=== PATIENT | male | born 1965 | race Caucasian/White ===

== ENCOUNTER → 2017-04-24 | Outpatient (CLI) | payer BC ==
[2017-04-24 13:21] LABS: BLOOD UREA NITROGEN 16 mg/dl (7-18); CALCIUM 9.1 mg/dl (8.5-10.1); CARBON DIOXIDE 30 mmol/L (21-32); CHLORIDE 104 mmol/L (98-107); CREATININE 0.93 mg/dl (0.60-1.40); GLUCOSE 93 mg/dl (70-99); POTASSIUM 4.1 mmol/L (3.5-5.1); SODIUM 139 mmol/L (136-145)
[2017-04-24 13:24] LABS: CHOLESTEROL 202 mg/dl (0-200); CHOLESTEROL/HDL RATIO 5.5; HDL CHOLESTEROL 37 mg/dl; LDL CHOLESTEROL CALCULATED 135 mg/dl; TRIGLYCERIDES 149 mg/dl (0-150); VERY LOW DENSITY LIPOPROT CALC 30 mg/dl
[2017-04-24 13:26] LABS: BASO % 0.3 %; BASO ABS # 0.02 K/uL (0-0.2); COMPLETE YES; EOS % 2.8 %; HEMATOCRIT 48.1 % (42-52); IG% 0.1 %; LYMPH % 33.7 %; LYMPH ABS # 2.28 K/uL (1.2-3.4); MEAN CELL VOLUME 88.1 fL (80-100); MEAN CORPUSCULAR HEMOGLOBIN 29.7 pg (25-34); MEAN CORPUSCULAR HGB CONC 33.7 g/dl (32-36); MEAN PLATELET VOLUME 10.8 fL (7.4-10.4); MONO % 7.7 %; NEUT % 55.4 %; PLATELET COUNT 190 K/uL (130-400); RED BLOOD COUNT 5.46 M/uL (4.7-6.1); WHITE BLOOD COUNT 6.76 K/uL (4.8-10.8)
== END | disposition home or self-care (01) ==
LOC: C.LABPVFM 09:11
PROVIDERS: ATTEND Family Medicine
DX: K14.6 Glossodynia (principal); Z98.84 Bariatric surgery status

== ENCOUNTER 2025-05-29 12:56 | Inpatient (IN) ==
--- NOTE | 2025-05-29 13:11 | Emergency Department Note ---
Impression & Plan Acute CVA (cerebrovascular accident), Acute loss of vision ED Provider Note HISTORY OF PRESENT ILLNESS: Patient is a 60-year-old male presenting with vision loss. 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 He states that he sees "the tiniest pinprick of light" in the right eye. However, he does not see anything else. He states the entire rest of his visual field is black. He states that he went to [place] [facility] eye doctor today after calling their clinic to be seen and they referred him to the emergency department because they said he "had a stroke in my eye." He did have his pupils dilated and a full retinal exam performed for the patient. Patient denies any numbness, tingling or weakness in his extremities. Denies any chest pain or shortness of breath. He reports he takes no medication, including any anticoagulants or antiplatelet therapies. ROS: as above PHYSICAL EXAM: Constitutional: Patient appears in no acute distress. Morbidly obese HENT: Head: Normocephalic and atraumatic. Eyes: EOMI. pupils are dilated bilaterally. Mouth/Throat: Mucous membranes moist. Neck: Trachea midline. Neck supple. Cardiovascular: RRR, No murmurs, rubs or gallops. Intact distal pulses. Pulmonary/Chest: No respiratory distress. Breath sounds clear and equal bilaterally. No wheezes or rales. Abdominal: Abdomen soft, no tenderness, rebound or guarding. Musculoskeletal: No edema, tenderness or deformity noted. Skin: Warm and dry. No rash, erythema, pallor or cyanosis Psychiatric: Appropriate mood and affect for situation. Neurological: Alert and keenly responsive. Facies symmetric. Able to raise eyebrows, close eyes, smile, puff mouth, stick out tongue, move tongue left and right and raise palate symmetrically. Able to shrug shoulders. PERRLA. SILT to forehead below eye and at jawline. Can hear soft noise bilaterally. Good finger to nose. Strength 5/5 in bilateral upper and lower extremities. SILT throughout bilateral upper and lower extremities. MDM: - Vitals signs showed hypertension and tachycardia. - Patient's last known well was at 9:30 AM. He presents to the emergency department at 1300. After my evaluation of the patient and his symptoms, I did request that he be stroke alerted given that he is within the TNK administration window. He has no other neurological symptoms other than complete vision loss in the right eye. He is noted to be hypertensive, so 10 mg of IV labetalol was ordered. On reassessment, his repeat blood pressure was 170s over 110. - Did discuss case with [facility] teleneurologist on- call, Dr. Aguilar, at 13:18. She reports that she will see the patient. - CT head without contrast reviewed by myself is negative for acute intracranial hemorrhage, per my interpretation. - I was called to the room at 13:40 to discuss TNK with the patient, given that he is within the window. Patient was verbally consented for TNK by myself and with teleneurologist on the stroke cart. Patient's blood pressure is 170s over 110. As such, an additional 10 mg of IV labetalol was ordered. Repeat blood pressure now 150/88. TNK (25 mg) was administered at 13:45. - History obtained via patient. History as above. - Chronic conditions affecting care: none - Differential diagnoses include, but are not limited to: CVA; intracranial hemorrhage; carotid dissection; aortic dissection; ACS - Order placed for continuous cardiac monitoring. At this time, monitor showed rate of 97 bpm with normal sinus rhythm, per my interpretation. - External medical records reviewed. Documentation from [place] [facility] office visit note that the patient brought with him was reviewed by myself. Physician recommended the patient obtain an ESR, CRP, carotid ultrasounds and echocardiogram for his ocular stroke workup. - EKG image interpreted by myself showed normal sinus rhythm. Rate 86 bpm. QT 354. No acute ischemic changes. - Laboratory workup interpreted by myself showed normal WBC; normal PT/INR; stable electrolytes; normal troponin; normal AST/ALT; elevated total bilirubin (1.1) - CT head without contrast negative for acute pathology. - CTA head/neck interpreted by radiology was grossly unremarkable. - Teleneurologist, Dr. Aguilar, reports that she will write a note in the patient's chart. Did recommend that homocystine levels to be drawn as well as a TSH to further workup the cause of the patient's ocular stroke. - On reassessment at 1415, the patient reports that his vision in the right eye is subtly improving. What used to be just pinprick of light in the right visual field has now become a [place] through which he can see. - Discussion was had with hospice case manager about patient's case and need for admission - Hospitalist consulted for admission - [facility]. I have personally spent 49 minutes of critical care time in the direct management of this patient. This includes bedside care, interpretation of diagnostic studies, and testing, discussion with consultants, patient, and family members, and other required patient management activities. This 49 minutes is in excess of all separately billable procedures. ASSESSMENT AND PLAN: Diagnosis: Acute CVA; acute loss of vision Acute loss of vision plan: Admit Past Med/Surg History Problem List (Updated 05/29/25 @ 13:52 by Kayla Hodges MD) Acute loss of vision (Acute) Acute CVA (cerebrovascular accident) (Acute) Lab test positive for detection of COVID-19 virus Dysuria Encounter for pre-operative examination No known health problems (Acute) Alcohol intoxication (Acute) Alcohol intoxication (Acute) Alcohol overdose (Acute) Alcohol overdose (Acute) Hernia, incisional (Acute 04/05/14) Medical History (Updated 05/29/25 @ 13:52 by Kayla Hodges MD) Morbid obesity with BMI of 45.0-49.9, adult Gout Sleep apnea no device, improved after bariatric sx Surgical History History of incisional hernia repair per pt came back--"volleyball sized hernia" History of esophagogastroduodenoscopy (EGD) History of wisdom tooth extraction History of María-en-Y gastric bypass Family History Father Family history of reaction to anesthesia "jeff freaked out after waking after surgery before" Social History Smoking Status: Never smoker Tobacco Type: Smokeless Tobacco (Dip or Chew) Second Hand Exposure: Yes (parents smoked); Do You Dip or Chew Tobacco: No; Hx Alcohol Use: Yes Alcohol type: beer, wine and hard liquor Hx Substance Use: No Preferred Language: Tam[place] Communication Ability: Effective Supervisor [employer] Required: No Beliefs That Will Affect Care: None marital status: Single Current Living Situation: Alone current occupational status: employed current occupation: [employer] Feels Safe at Home: Yes caffeine: Yes (coffee and tea) Dental Care, Regularly: Yes Physical Activity Frequency: 1-2 Times per Week Seatbelt Use: never Sunscreen Use: Yes Assistive Devices: Glasses Allergies Allergies Allergy/AdvReac Type Severity Reaction Status Date / Time No Known Allergies Allergy Verified 05/04/23 11:43 Home Meds Home Medications Medication Instructions Recorded Confirmed acetaminophen 325 mg tablet 650 mg PO QAM 03/29/19 05/04/23 cholecalciferol (vitamin D3) 50 2,000 unit PO QAM 03/29/19 05/04/23 mcg (2,000 unit) tablet (Vitamin D3) ibuprofen 200 mg tablet 400 mg PO QAM 03/29/19 05/04/23 Previous Rx's Medication Instructions Recorded escitalopram oxalate 10 mg tablet 10 mg PO DAILY #30 tabs 05/04/23 (Lexapro) lorazepam 0.5 mg tablet 0.5 mg PO BID PRN anxiety #60 tabs 05/04/23 Results & Data (ED) Vital Signs Vital Signs - 24 hr 05/29/25 12:58 05/29/25 13:11 05/29/25 13:11 Temperature 36.6 C Temperature Source Temporal Artery Scan Pulse Rate 98 H Pulse Rate [Apical] Pulse Rate from SpO2 Sensor Respiratory Rate 18 Respiratory Effort / Characteristics Non-Labored Spontaneous Respiratory Depth Normal Respiratory Pattern Blood Pressure 195/132 H 177/110 H Blood Pressure [Left Arm] 177/110 H Blood Pressure Mean 153 129 Blood Pressure Mean [Left Arm] 132 Blood Pressure Position [Left Arm] Pulse Oximetry 98 Oxygen Delivery Method Room Air Sepsis Recent Fever Within 48 Hours No Sepsis New/Unexplained Change in Mental Status No Sepsis Action Taken by Nursing No Action Required 05/29/25 13:27 05/29/25 13:27 05/29/25 13:27 Temperature Temperature Source Pulse Rate 103 H 102 H Pulse Rate [Apical] Pulse Rate from SpO2 Sensor 101 H Respiratory Rate 25 H Respiratory Effort / Characteristics Respiratory Depth Respiratory Pattern Blood Pressure 190/105 H 190/105 H Blood Pressure [Left Arm] Blood Pressure Mean 138 Blood Pressure Mean [Left Arm] Blood Pressure Position [Left Arm] Pulse Oximetry 96 Oxygen Delivery Method Room Air Sepsis Recent Fever Within 48 Hours Sepsis New/Unexplained Change in Mental Status Sepsis Action Taken by Nursing 05/29/25 13:28 05/29/25 13:30 05/29/25 13:30 Temperature Temperature Source Pulse Rate 111 H 98 H Pulse Rate [Apical] Pulse Rate from SpO2 Sensor 98 H Respiratory Rate 21 Respiratory Effort / Characteristics Respiratory Depth Respiratory Pattern Blood Pressure 172/109 H Blood Pressure [Left Arm] Blood Pressure Mean 142 Blood Pressure Mean [Left Arm] Blood Pressure Position [Left Arm] Pulse Oximetry 95 Oxygen Delivery Method Room Air Sepsis Recent Fever Within 48 Hours Sepsis New/Unexplained Change in Mental Status Sepsis Action Taken by Nursing 05/29/25 13:36 05/29/25 13:38 05/29/25 13:38 Temperature Temperature Source Pulse Rate 92 H Pulse Rate [Apical] Pulse Rate from SpO2 Sensor Respiratory Rate 24 Respiratory Effort / Characteristics Respiratory Depth Respiratory Pattern Blood Pressure 181/113 H Blood Pressure [Left Arm] 181/113 H Blood Pressure Mean 161 Blood Pressure Mean [Left Arm] 135 Blood Pressure Position [Left Arm] Lying Pulse Oximetry Oxygen Delivery Method Sepsis Recent Fever Within 48 Hours Sepsis New/Unexplained Change in Mental Status Sepsis Action Taken by Nursing 05/29/25 13:39 05/29/25 13:40 05/29/25 13:42 Temperature Temperature Source Pulse Rate 94 H 94 H Pulse Rate [Apical] Pulse Rate from SpO2 Sensor 93 H 93 H Respiratory Rate 24 25 H Respiratory Effort / Characteristics Respiratory Depth Respiratory Pattern Blood Pressure 172/110 H Blood Pressure [Left Arm] Blood Pressure Mean 126 Blood Pressure Mean [Left Arm] Blood Pressure Position [Left Arm] Pulse Oximetry 98 96 Oxygen Delivery Method Room Air Room Air Sepsis Recent Fever Within 48 Hours Sepsis New/Unexplained Change in Mental Status Sepsis Action Taken by Nursing 05/29/25 13:43 05/29/25 13:43 05/29/25 13:45 Temperature Temperature Source Pulse Rate 86 Pulse Rate [Apical] 85 Pulse Rate from SpO2 Sensor 86 Respiratory Rate 20 25 H Respiratory Effort / Characteristics Non-Labored Spontaneous Respiratory Depth Normal Respiratory Pattern Regular Blood Pressure 154/88 H Blood Pressure [Left Arm] 154/88 H Blood Pressure Mean 109 Blood Pressure Mean [Left Arm] 110 Blood Pressure Position [Left Arm] Pulse Oximetry 96 96 Oxygen Delivery Method Room Air Room Air Sepsis Recent Fever Within 48 Hours Sepsis New/Unexplained Change in Mental Status Sepsis Action Taken by Nursing 05/29/25 13:45 05/29/25 13:48 05/29/25 13:50 Temperature Temperature Source Pulse Rate 86 Pulse Rate [Apical] Pulse Rate from SpO2 Sensor 87 Respiratory Rate 19 Respiratory Effort / Characteristics Respiratory Depth Respiratory Pattern Blood Pressure 151/96 H 149/87 H Blood Pressure [Left Arm] Blood Pressure Mean 117 110 Blood Pressure Mean [Left Arm] Blood Pressure Position [Left Arm] Pulse Oximetry 96 Oxygen Delivery Method Room Air Sepsis Recent Fever Within 48 Hours Sepsis New/Unexplained Change in Mental Status Sepsis Action Taken by Nursing 05/29/25 13:51 05/29/25 13:54 05/29/25 13:55 Temperature Temperature Source Pulse Rate 86 84 Pulse Rate [Apical] Pulse Rate from SpO2 Sensor 86 83 Respiratory Rate 21 20 Respiratory Effort / Characteristics Respiratory Depth Respiratory Pattern Blood Pressure 153/96 H Blood Pressure [Left Arm] Blood Pressure Mean 111 Blood Pressure Mean [Left Arm] Blood Pressure Position [Left Arm] Pulse Oximetry 96 96 Oxygen Delivery Method Room Air Room Air Sepsis Recent Fever Within 48 Hours Sepsis New/Unexplained Change in Mental Status Sepsis Action Taken by Nursing 05/29/25 13:55 05/29/25 13:57 05/29/25 14:00 Temperature Temperature Source Pulse Rate 88 90 Pulse Rate [Apical] Pulse Rate from SpO2 Sensor 88 89 Respiratory Rate 19 23 Respiratory Effort / Characteristics Respiratory Depth Respiratory Pattern Blood Pressure 153/96 H Blood Pressure [Left Arm] Blood Pressure Mean 111 Blood Pressure Mean [Left Arm] Blood Pressure Position [Left Arm] Pulse Oximetry 97 96 Oxygen Delivery Method Room Air Room Air Sepsis Recent Fever Within 48 Hours Sepsis New/Unexplained Change in Mental Status Sepsis Action Taken by Nursing 05/29/25 14:00 05/29/25 14:06 Temperature Temperature Source Pulse Rate 88 Pulse Rate [Apical] Pulse Rate from SpO2 Sensor 88 Respiratory Rate 23 Respiratory Effort / Characteristics Respiratory Depth Respiratory Pattern Blood Pressure 146/88 H Blood Pressure [Left Arm] Blood Pressure Mean 108 Blood Pressure Mean [Left Arm] Blood Pressure Position [Left Arm] Pulse Oximetry 97 Oxygen Delivery Method Room Air Sepsis Recent Fever Within 48 Hours Sepsis New/Unexplained Change in Mental Status Sepsis Action Taken by Nursing Laboratory Data 05/29/25 13:10 05/29/25 13:10 Lab Results 05/29/25 05/29/25 Range/Units 13:10 13:12 WBC 9.33 (4.8-10.8) K/ul RBC 5.62 (4.70-6.10) M/uL Hgb 16.1 (14.0-18.0) g/dL POC Hgb 17.0 (14.0-18.0) g/dl Hct 48.7 (42.0-52.0) % POC Hct 50 (42-52) % MCV 86.7 (80.0-100.0) fL MCH 28.6 (25.0-34.0) pg MCHC 33.1 (32.0-36.0) g/dL RDW Std Deviation 40.2 (36.4-46.3) fL RDW Coeff of Justyn 12.8 (11.5-14.5) % Plt Count 196 (130-400) K/uL MPV 10.3 (9.4-12.4) fL Immature Gran % (Auto) 0.3 % Neut % (Auto) 76.1 % Lymph % (Auto) 15.1 % [place] % (Auto) 6.8 % Eos % (Auto) 1.4 % Baso % (Auto) 0.3 % Neut # (Auto) 7.10 H (1.40-6.50) K/uL Lymph # (Auto) 1.41 (1.20-3.40) K/uL [place] # (Auto) 0.63 H (0.11-0.59) K/uL Eos # (Auto) 0.13 (0.00-0.50) K/uL Baso # (Auto) 0.03 (0.00-0.20) K/uL Immature Gran # (Auto) 0.03 (0.01-0.20) K/uL PT 10.3 (9.0-12.0) Seconds INR 1.0 (0.9-1.1) APTT 28 (21-31) Seconds PTT Ratio 1.0 POC Sodium 140 (135-144) mmol/L Sodium 138 (136-145) mmol/L POC Potassium 4.2 (3.3-5.0) mmol/L Potassium 4.0 (3.5-5.1) mmol/L POC Chloride 99 L (101-112) mmol/L Chloride 100 (98-107) mmol/L Carbon Dioxide 30 (21-32) mmol/L POC Total CO2 28 (24-31) mmol/L Anion Gap 8 (3-11) POC Anion Gap 18.0 (16-25) mmol/L POC BUN 15 (7-18) mg/dl BUN 14 (6-23) mg/dl Creatinine 0.84 (0.6-1.4) mg/dl POC Creatinine 0.9 (0.6-1.3) mg/dl Est Cr Clr Drug Dosing 126.3 ml/min eGFR 99.83 BUN/Creatinine Ratio 16.7 (10-20) Glucose 98 (70-99(Fasting)) mg/dl POC Glucose 89 (70-99) mg/dl POC Glucose (other) 95 (70-99) mg/dl Calcium 9.6 (8.6-10.3) mg/dl POC Ioniz Calcium Ginny 1.16 (1.12-1.32) mmol/l Magnesium 2.0 (1.7-2.4) mg/dl Total Bilirubin 1.1 H (0.2-1.0) mg/dl AST 22 (13-39) U/L ALT 17 (7-52) U/L Alkaline Phosphatase 106 H (34-104) U/L Troponin I High Sens 6.7 (0-20) pg/ml Total Protein 8.3 (6.0-8.3) gm/dl Albumin 4.7 (3.4-5.0) gm/dl Globulin 3.6 (2.5-4.0) gm/dl Albumin/Globulin Ratio 1.3 (0.9-2) Blood Type A Positive Antibody Screen NEGATIVE Administered Medications Sodium Chloride (Nss) 1,000 mls @ 999 mls/hr IV .Q1H1M ONE Stop: 05/29/25 14:48 Last Admin: 05/29/25 13:49 Dose: 999 mls/hr Documented By: MONTEZ Discontinued Medications Tenecteplase 25 mg/ Syringe 5 mls @ 60 mls/min IV NOW ONE; Protocol Stop: 05/29/25 13:59 Last Admin: 05/29/25 13:52 Dose: 1 mls/min Documented By: MONTEZ Co-signed By: damaris Ioversol (Optiray 320 125ml) 120 ml IV ONCE ONE Stop: 05/29/25 13:18 Last Admin: 05/29/25 13:18 Dose: 120 ml Documented By: SILVINA Labetalol HCl (Labetalol Hcl Iv 5 Mg/Ml 20ml) 10 mg IV NOW STA Stop: 05/29/25 13:12 Last Admin: 05/29/25 13:27 Dose: 10 mg Documented By: MONTEZ Labetalol HCl (Labetalol Hcl Iv 5 Mg/Ml 20ml) 10 mg IV NOW STA Stop: 05/29/25 13:42 Last Admin: 05/29/25 13:41 Dose: 10 mg Documented By: MONTEZ Miscellaneous (Stat Iv/Im) 1 each N/A NOW STA Stop: 05/29/25 13:48 Last Admin: 05/29/25 13:54 Dose: Not Given Documented By: MONTEZ Sodium Chloride (Sodium Chloride 0.9% 10ml Flush) 20 ml IV NOW STA Stop: 05/29/25 13:48 Last Admin: 05/29/25 13:45 Dose: 20 ml Documented By: MONTEZ Imaging Data Radiologist's Impression: Head CT 05/29/25 13:[address] OF THE BRAIN; CT ANGIOGRAM OF THE BRAIN CLINICAL HISTORY: Neurological deficit. Stroke like symptoms. Right-sided vision loss. COMPARISON STUDY: No priors TECHNIQUE: Unenhanced axial CT scan of the brain is performed. Subsequently, following the IV administration of 120 cc of Optiray 320, CT angiogram of the brain was performed from the skull base to the vertex. Images are reviewed in the axial, sagittal, and coronal planes. 3-D MIPS images are created and assessed. IV contrast was administered without complication. A dose lowering technique was utilized adhering to the principles of ALARA. FINDINGS: Brain parenchyma: The brain parenchyma is normal in appearance. There is no hemorrhage, mass effect, or evidence of acute territorial ischemia by CT criteria. There is no evidence of enhancing mass lesion on the angiogram phase images. No extra-axial fluid collection is seen. Robles-white matter differentiation is preserved. Ventricles, sulci, and cisterns: Normal in configuration. CT angiogram of the brain: There is atherosclerotic calcification of the cavernous carotid arteries. The internal carotid arteries at the skull base are patent, as are the anterior and middle cerebral arteries. The vertebrobasilar system and posterior cerebral arteries are patent. The left vertebral artery is dominant. A posterior communicating artery is seen on the left. There is no aneurysm, high-grade stenosis, or focal vessel cutoff identified throughout the intracranial circulation. Dural sinuses: Clear as visualized. Orbits: The bony orbits are intact. The orbital contents are normal as visualized. Sinuses and mastoids: The visualized paranasal sinuses are clear. The mastoid air cells are well pneumatized. Calvarium: Unremarkable. IMPRESSION: 1. There is no hemorrhage, mass effect, or evidence of acute territorial ischemia by CT criteria. 2. Unremarkable CT angiogram of the brain. ACT 112: Negative or not required by law. Electronically signed by: Mann Fernando M.D. 05/29/2025 1:38 PM Head CTA 05/29/25 13:[address] OF THE BRAIN; CT ANGIOGRAM OF THE BRAIN CLINICAL HISTORY: Neurological deficit. Stroke like symptoms. Right-sided vision loss. COMPARISON STUDY: No priors TECHNIQUE: Unenhanced axial CT scan of the brain is performed. Subsequently, following the IV administration of 120 cc of Optiray 320, CT angiogram of the brain was performed from the skull base to the vertex. Images are reviewed in the axial, sagittal, and coronal planes. 3-D MIPS images are created and assessed. IV contrast was administered without complication. A dose lowering technique was utilized adhering to the principles of ALARA. FINDINGS: Brain parenchyma: The brain parenchyma is normal in appearance. There is no hemorrhage, mass effect, or evidence of acute territorial ischemia by CT criteria. There is no evidence of enhancing mass lesion on the angiogram phase images. No extra-axial fluid collection is seen. Robles-white matter differentiation is preserved. Ventricles, sulci, and cisterns: Normal in configuration. CT angiogram of the brain: There is atherosclerotic calcification of the cavernous carotid arteries. The internal carotid arteries at the skull base are patent, as are the anterior and middle cerebral arteries. The vertebrobasilar system and posterior cerebral arteries are patent. The left vertebral artery is dominant. A posterior communicating artery is seen on the left. There is no aneurysm, high-grade stenosis, or focal vessel cutoff identified throughout the intracranial circulation. Dural sinuses: Clear as visualized. Orbits: The bony orbits are intact. The orbital contents are normal as visualized. Sinuses and mastoids: The visualized paranasal sinuses are clear. The mastoid air cells are well pneumatized. Calvarium: Unremarkable. IMPRESSION: 1. There is no hemorrhage, mass effect, or evidence of acute territorial ischemia by CT criteria. 2. Unremarkable CT angiogram of the brain. ACT 112: Negative or not required by law. Electronically signed by: Mann Fernando M.D. 05/29/2025 1:38 PM Neck CTA 05/29/25 13:06 CT ANGIOGRAPHY OF THE NECK WITH CONTRAST CLINICAL HISTORY: neuro deficit, acute stroke suspected COMPARISON STUDY: No previous studies for comparison. Technique: CT angiography of the carotid and vertebral arteries was obtained using Optiray and 3D reconstruction on an independent workstation. NASCET criteria was utilized. Automated exposure control was utilized for the study. A dose lowering technique was utilized adhering to the principles of ALARA. CT DOSE: 1171.33 mGy.cm Findings: Visualized portions of the lung apices are unremarkable. There is no cervical lymphadenopathy. There are no cervical spine fractures. The bilateral common carotid, cervical internal carotid and vertebral arteries are patent. There is minimal plaque within the proximal bilateral internal carotid arteries without stenosis. There is no aneurysm or dissection within the neck. IMPRESSION: No stenosis or dissection within the bilateral common carotid, cervical internal carotid or vertebral arteries. ACT 112: Negative or not required by law. Electronically signed by: Glenn Winn M.D. 05/29/2025 1:38 PM Discharge Plan Visit Data Chief Complaint: Stroke Alert Stated Complaint: LOST SIGHT IN R EYE, REF BY DOC ED Provider: Kayla Hodges Discharge Problem: Acute CVA (cerebrovascular accident), Acute loss of vision Patient Disposition: Admitted As Inpatient Condition: Fair Forms Stand Alone Forms: [facility] [place] Prescriptions Prescriptions: No Action lorazepam 0.5 mg tablet 0.5 mg PO BID PRN (Reason: anxiety) Qty: 60 0RF escitalopram oxalate [Lexapro] 10 mg tablet 10 mg PO DAILY Qty: 30 5RF acetaminophen 325 mg Tablet 650 mg PO QAM ibuprofen 200 mg Tablet 400 mg PO QAM cholecalciferol (vitamin D3) [Vitamin D3] 2,000 unit Tablet 2,000 unit PO QAM Referrals Referrals: Meghann Croft MD [Primary Care Provider] -
[2025-05-29] MEDS: OPTIRAY 320 125ml IV ONE (13:18)
[2025-05-29 13:25] LABS: Hematocrit (blood only) 48.7 % (42.0-52.0); Hemoglobin 16.1 g/dL (14.0-18.0); Immature Granulocytes # (auto) 0.03 K/uL (0.01-0.20); Immature Granulocytes % (auto) 0.3 %; Mean Corpuscular Hemoglobin 28.6 pg (25.0-34.0); Mean Corpuscular Volume 86.7 fL (80.0-100.0); Platelet Count 196 K/uL (130-400); RDW Standard Deviation 40.2 fL (36.4-46.3); Red Blood Count 5.62 M/uL (4.70-6.10); White Blood Count 9.33 K/ul (4.8-10.8)
[2025-05-29] MEDS: LABETALOL HCL IV 5 MG/ML 20ML IV STA ×2 (13:27→13:41)
--- NOTE | 2025-05-29 13:40 | CT Scan Report ---
CT ANGIOGRAPHY OF THE NECK WITH CONTRAST CLINICAL HISTORY: neuro deficit, acute stroke suspected COMPARISON STUDY: No previous studies for comparison. Technique: CT angiography of the carotid and vertebral arteries was obtained using Optiray and 3D rec onstruction on an independent workstation. NASCET criteria was utilized. Automated exposure control was utilized for the study. A dose lowering technique was utilized adhering to the principles of ALA RA. CT DOSE: 1171.33 mGy.cm Findings: Visualized portions of the lung apices are unremarkable. There is no cervical lymphadenopat hy. There are no cervical spine fractures. The bilateral common carotid, cervical internal carotid an d vertebral arteries are patent. There is minimal plaque within the proximal bilateral internal carot id arteries without stenosis. There is no aneurysm or dissection within the neck. IMPRESSION: No stenosis or dissection within the bilateral common carotid, cervical internal carotid or vertebral arteries. ACT 112: Negative or not required by law. Electronically signed by: Glenn Winn M.D. 05/29/2025 1:38 PM
--- NOTE | 2025-05-29 13:40 | CT Scan Report ---
UNENHANCED CT OF THE BRAIN; CT ANGIOGRAM OF THE BRAIN CLINICAL HISTORY: Neurological deficit. Stroke like symptoms. Right-sided vision loss. COMPARISON STUDY: No priors TECHNIQUE: Unenhanced axial CT scan of the brain is performed. Subsequently, following the IV adminis tration of 120 cc of Optiray 320, CT angiogram of the brain was performed from the skull base to the vertex. Images are reviewed in the axial, sagittal, and coronal planes. 3-D MIPS images are created a nd assessed. IV contrast was administered without complication. A dose lowering technique was utiliz ed adhering to the principles of ALARA. FINDINGS: Brain parenchyma: The brain parenchyma is normal in appearance. There is no hemorrhage, mass effect, or evidence of acute territorial ischemia by CT criteria. There is no evidence of enhancing mass lesi on on the angiogram phase images. No extra-axial fluid collection is seen. Robles-white matter differen tiation is preserved. Ventricles, sulci, and cisterns: Normal in configuration. CT angiogram of the brain: There is atherosclerotic calcification of the cavernous carotid arteries. The internal carotid arteries at the skull base are patent, as are the anterior and middle cerebral a rteries. The vertebrobasilar system and posterior cerebral arteries are patent. The left vertebral ar jose is dominant. A posterior communicating artery is seen on the left. There is no aneurysm, high-gr rai stenosis, or focal vessel cutoff identified throughout the intracranial circulation. Dural sinuses: Clear as visualized. Orbits: The bony orbits are intact. The orbital contents are normal as visualized. Sinuses and mastoids: The visualized paranasal sinuses are clear. The mastoid air cells are well pneu matized. Calvarium: Unremarkable. IMPRESSION: 1. There is no hemorrhage, mass effect, or evidence of acute territorial ischemia by CT criteria. 2. Unremarkable CT angiogram of the brain. ACT 112: Negative or not required by law. Electronically signed by: Mann Fernando M.D. 05/29/2025 1:38 PM
[2025-05-29 13:42] LABS: Alanine Aminotransferase 17.0 U/L (7-52); Albumin Globulin Ratio 1.3 (0.9-2); Albumin Level 4.7 gm/dl (3.4-5.0); Alkaline Phosphatase 106.0 U/L (34-104); Anion Gap 8.0 (3-11); Bilirubin,Total 1.1 mg/dl (0.2-1.0); Blood Urea Nitrogen 14.0 mg/dl (6-23); Calcium 9.6 mg/dl (8.6-10.3); Carbon Dioxide 30.0 mmol/L (21-32); Chloride 100.0 mmol/L (98-107); Creatinine Clr Calc Pharmacy 126.3 ml/min; Globulin 3.6 gm/dl (2.5-4.0); Glucose 98.0 mg/dl (70-99(Fasting)); Magnesium 2.0 mg/dl (1.7-2.4); Potassium 4.0 mmol/L (3.5-5.1); Sodium 138.0 mmol/L (136-145); Total Protein 8.3 gm/dl (6.0-8.3)
[2025-05-29] MEDS: TENECTEPLASE 25 MG in SYRINGE 0 ML IV ONE (13:45)
[2025-05-29] MEDS: SODIUM CHLORIDE 0.9% 10ML FLUSH IV STA (13:45)
[2025-05-29] MEDS: SODIUM CHLORIDE 0.9% 1,000 ML IV ONE (13:49)
[2025-05-29] MEDS: STAT IV/IM STA (13:54)
[2025-05-29 13:56] LABS: INR 1.0 (0.9-1.1); Partial Thromboplastin Time 28 Seconds (21-31); Prothrombin Time 10.3 Seconds (9.0-12.0)
[2025-05-29] MEDS ORDERED: No Aspirin within 24hrs of THROMBOLYTIC-Stroke PO SCH (14:00)
[2025-05-29] MEDS ORDERED: ONDANSETRON INJ 2 MG/ML 2 ML VIAL IV PRN (14:19)
[2025-05-29] MEDS ORDERED: ACETAMINOPHEN 325 MG TAB PO PRN (14:19)
--- NOTE | 2025-05-29 14:41 | Critical Care Consultation ---
Date of Consultation May 29, 2025 Assessment & Plan (1) Acute CVA (cerebrovascular accident): (2) Acute loss of vision: (3) Hypertension: Plan Patient is a 60-year-old male with a past medical history of obesity, anxiety, JENNIFER without home CPAP. The patient presented to the emergency department after acute onset of vision loss at 9:30 AM. He had been evaluated by an engineering drawings checker who was concerned about a stroke in the right eye. CT imaging on arrival to the ER did not show any acute process. Neurology was consulted. The decision was made to administer TNK which was done at 1345. The patient was admitted to the ICU post TNK. Reason Critically Ill: Acute CVA status post TNK Right eye vision loss Hypertension History of JENNIFER without home CPAP Neuro: CT imaging with CT without contrast as well as CT angio head and neck unrevealing. Almost complete vision loss out of the right eye. No other focal deficits appreciated. Patient received TNK at 1345. Frequent neurochecks (every 15 minutes) for the first 2 hours, then 30 minutes then hourly. Will do strict blood pressure control, less than 180/105 mmHg. N.p.o., speech is fluent, I suspect he will pass a bedside swallow and can have a diet. Patient will need a repeat CT head at 24 hours. Obtain a stat CT head if the patient develops headache or worsening neurologic symptoms. Will need lipid panel in AM and CBC. Obtain echocardiogram with bubble study. Obtain homocystine and TSH. Cardiac: Permissive hypertension, will order nicardipine infusion, systolic less than 180/105 mmHg. Will need echo with bubble study. Respiratory: History of JENNIFER with out home CPAP use. Monitor on telemetry overnight. May require nasal cannula or CPAP tonight if he desaturates. GI: N.p.o., swallow eval. RENAL/LYTES: Renal function normal on admission labs. Electrolytes acceptable. Repeat in AM. ENDO: Will need A1c and lipid panel. Glucose acceptable on admission. Monitor blood glucose every 4 hours. HEME: No evidence of anemia or significant thrombocytopenia. CBC in AM. ID: No symptoms of infection or indication for antibiotics at this time. Feeding: N.p.o. until swallow eval. Activity: Bedrest Thromboprophylaxis: SCD Ulcer prophylaxis: None Glycemic control: Monitor glucose Q4, blood sugar acceptable at this time Plan: Patient will be admitted to the medical ICU for monitoring after TNK for acute CVA. Patient will need repeat CT head tomorrow. Obtain a CT head earlier if the patient has changes in his neurologic exam. Sounds as though there is a familial component, brother had a very similar stroke. Also may have some coronary history as his other brother suddenly approximately 1 month ago. Echocardiogram and full workup would be indicated. Acute blood pressure controlled for the first 24 hours, goal systolic less than 180 and diastolic l ess than 105. I have personally spent 65 minutes of critical care time in the direct management of this patient. This is a life/limb threatening event. This includes time spent evaluating patient, direct bedside care, chart review, placing orders, interpretation of diagnostic studies, discussion with consultants, patient, and family members, as well as other required patient management activities. This time is exclusive of all separately billable procedures, and teaching time and separate from and in addition to any other critical care service time. History of Present Illness Reason for Consultation: Stroke status post TNK Requesting Physician: Kayla Hodges MD Attending Physician: Kayla Hodges MD History of Present Illness Patient is a 60-year-old male with a past medical history significant for obesity with history of gastric María-en-Y, obstructive sleep apnea not on home CPAP and insomnia. The patient does not take any prescribed medications at home and does not follow closely with a doctor, was last seen by PCP in 2022. 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 He felt a little bit dizzy but now had no other symptoms. No other weakness or numbness. No difficulty speaking. Was able to see out of his left eye and had a small amount of vision in the right eye but otherwise could not see anything out of it. The patient visited an outpatient engineering drawings checker, he had an eye exam, upon funduscopic exam after dilation of the right eye the engineering drawings checker was concerned about stroke and instructed him to present to the emergency department. On arrival to the ER the patient was taken for CT imaging, CT head did not show any acute process. CT angio head and neck was also without any evidence of stenosis or aneurysms. Neurology was consulted by the ER, the decision was made to go ahead and administer TNK. Blood pressure was initially elevated but improved after labetalol. Patient received [facility] 1345[facility]. When examined the patient in the ER he is resting comfortably in bed. Eyes are still dilated from his recent eye exam. Still has almost complete vision loss out of the right eye. Has no other complaints, he has good vision out of his left eye, no headache, no difficulty speaking or slurring of speech. No numbness or weakness throughout the rest of his body. Was able to walk after his stroke. No focal deficits outside of his right eye vision loss appreciated on my exam. Past medical history: JENNIFER without home CPAP Obesity status post gastric María-en-Y Anxiety Insomnia Social history: Does not smoke cigarettes. Endorses chewing tobacco use. Family history: Brother had a stroke, similar presentation to his. Another brother suddenly about 1 month ago, was thought to be a cardiac event. Allergies Allergy/AdvReac Type Severity Reaction Status Date / Time No Known Allergies Allergy Verified 05/04/23 11:43 Home Medications Medication Instructions Recorded Confirmed Type acetaminophen 325 mg tablet 650 mg PO QAM 03/29/19 05/04/23 History cholecalciferol (vitamin D3) 50 2,000 unit PO QAM 03/29/19 05/04/23 History mcg (2,000 unit) tablet (Vitamin D3) ibuprofen 200 mg tablet 400 mg PO QAM 03/29/19 05/04/23 History escitalopram oxalate 10 mg tablet 10 mg PO DAILY #30 tabs 05/04/23 05/04/23 Rx (Lexapro) lorazepam 0.5 mg tablet 0.5 mg PO BID PRN anxiety #60 tabs 05/04/23 05/04/23 Rx Patient History Medical History (Updated 05/29/25 @ 14:31 by Andreea Conway MD) Morbid obesity with BMI of 45.0-49.9, adult Gout Sleep apnea no device, improved after bariatric sx Surgical History History of incisional hernia repair per pt came back--"volleyball sized hernia" History of esophagogastroduodenoscopy (EGD) History of wisdom tooth extraction History of María-en-Y gastric bypass Family History Father Family history of reaction to anesthesia "jeff freaked out after waking after surgery before" Social History Smoking Status: Never smoker Tobacco Type: Smokeless Tobacco (Dip or Chew) Second Hand Exposure: Yes (parents smoked); Do You Dip or Chew Tobacco: No; Hx Alcohol Use: Yes Alcohol type: beer, wine and hard liquor Hx Substance Use: No Preferred Language: Armenian Communication Ability: Effective Embroidery Supervisor Required: No Beliefs That Will Affect Care: None marital status: Single Current Living Situation: Alone current occupational status: employed current occupation: [employer] Feels Safe at Home: Yes caffeine: Yes (coffee and tea) Dental Care, Regularly: Yes Physical Activity Frequency: 1-2 Times per Week Seatbelt Use: never Sunscreen Use: Yes Assistive Devices: Glasses Review of Systems Review of Systems: Negative except as in HPI. Physical Exam Physical Exam: Physical examination: General: Obese, comfortable, resting in bed, not in distress at this time. HEENT: Normocephalic, atraumatic. Pupils are dilated. Vision loss out of the right eye. Skin: Warm and dry. No rashes appreciated. No jaundice appreciated. Cardiovascular: Heart is a regular rate and rhythm, no murmurs appreciated on my exam. No significant lower extremity edema. Lungs: Clear bilaterally, no wheezing appreciated. No crackles. Nontachypneic. Resting comfortably on room air. Abdomen: Protuberant, nontender. No masses appreciated. Musculoskeletal: Normal muscle mass and tone. No gross joint deformity abnormalities. No effusions appreciated. Neurologic: Awake and alert, oriented. Speech is fluent. Moving all extremities. Normal sensation and strength. Right eye vision loss. Psychiatric: Appropriate cooperative during my exam. Results & Data Results & Data Vital Signs (Past 12 Hours) Vital Signs Temp Pulse Pulse Resp BP BP Pulse Ox 05/29/25 14:16 136/76 05/29/25 14:15 92 H 30 H 97 05/29/25 14:12 94 H 30 H 98 05/29/25 14:10 152/105 H 05/29/25 14:09 93 H 26 H 97 05/29/25 14:06 88 23 97 05/29/25 14:00 146/88 H 05/29/25 14:00 90 23 96 05/29/25 13:57 88 19 97 05/29/25 13:55 153/96 H 05/29/25 13:55 153/96 H 05/29/25 13:54 84 20 96 05/29/25 13:51 86 21 96 05/29/25 13:50 149/87 H 05/29/25 13:48 86 19 96 05/29/25 13:45 151/96 H 05/29/25 13:45 86 25 H 96 05/29/25 13:43 154/88 H 05/29/25 13:43 85 20 154/88 H 96 05/29/25 13:42 94 H 25 H 96 05/29/25 13:40 172/110 H 05/29/25 13:39 94 H 24 98 05/29/25 13:38 181/113 H 05/29/25 13:38 181/113 H 05/29/25 13:36 92 H 24 05/29/25 13:30 98 H 21 95 05/29/25 13:30 172/109 H 05/29/25 13:28 111 H 05/29/25 13:27 190/105 H 05/29/25 13:27 102 H 25 H 96 05/29/25 13:27 103 H 190/105 H 05/29/25 13:11 177/110 H 05/29/25 13:11 177/110 H 05/29/25 12:58 36.6 C 98 H 18 195/132 H 98 O2 Del Method 05/29/25 14:16 05/29/25 14:15 Room Air 05/29/25 14:12 Room Air 05/29/25 14:10 05/29/25 14:09 Room Air 05/29/25 14:06 Room Air 05/29/25 14:00 05/29/25 14:00 Room Air 05/29/25 13:57 Room Air 05/29/25 13:55 05/29/25 13:55 05/29/25 13:54 Room Air 05/29/25 13:51 Room Air 05/29/25 13:50 05/29/25 13:48 Room Air 05/29/25 13:45 05/29/25 13:45 Room Air 05/29/25 13:43 05/29/25 13:43 Room Air 05/29/25 13:42 Room Air 05/29/25 13:40 05/29/25 13:39 Room Air 05/29/25 13:38 05/29/25 13:38 05/29/25 13:36 05/29/25 13:30 Room Air 05/29/25 13:30 05/29/25 13:28 05/29/25 13:27 05/29/25 13:27 Room Air 05/29/25 13:27 05/29/25 13:11 05/29/25 13:11 05/29/25 12:58 Room Air Coding Level of Care Code 65398 CRITICAL CARE 1ST 30-74M Diagnoses Acute CVA (cerebrovascular accident) I63.9 Acute loss of vision H53.139 Hypertension I10
[2025-05-29] MEDS ORDERED: STAT IV Infusion **Titration per Protocol STA (14:42)
--- NOTE | 2025-05-29 16:12 | Ultrasound Report ---
Technique: Carotid sonography was performed Findings: Mild atherosclerotic plaque is seen within both carotid bulbs. No significant stenosis is seen on davenport scale images. Antegrade flow is seen within both vertebral arteries. Peak systolic velocities are as follows: Right common carotid artery: 77 cm per second Right internal carotid artery: 58 cm per second Right external carotid artery: 57 cm per second Right ICA/CCA PSV ratio: <1 Left common carotid artery: 101 cm per second Left internal carotid artery: 59 cm per second Left external carotid artery:71 cm per second Left ICA/CCA PSV ratio: <1 Impression: Mild carotid atherosclerosis, without stenosis Electronically signed by Chepe Villalpando 05-29-2025 4:11 PM
--- NOTE | 2025-05-29 16:17 | History & Physical Report ---
Date of Service May 29, 2025 Assessment & Plan (1) Acute loss of vision: Plan: -right eye total visual field loss -CTA/CTA negative -s/p TNK -ICU monitoring -repeat CT ordered for am -echo -carotid doppler -MRI/MRA brain -homocystine level -TSH -critical care consult appreicated (2) Hypertension: Plan: -permissive HTN -nicardipine Admission and Anticipated Discharge Date Admission Date: May 29, 2025 History of Present Illness Chief Complaint: Right eye visual loss Primary Care Provider: Meghann Croft MD Pt is a 60 y/o male with pmh of HTN who presents with right total visual field loss. 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 Pt has no other neurological deficits. Pt went to a gas mask inspector who evaluated the patient and set him to the ER for treatment of ocular stroke. In the ER his CT/CTA head was negative. The case was discussed with tele-neurology who recommended patient received TNK, and it was administered at 13:45. Pt did report some improvement to his right eye vision after. He is being admitted to ICU for further monitoring post TKA and will have his CVA work up completed with echo, carotid duplex and MRI/MRA brain. Allergies Allergy/AdvReac Type Severity Reaction Status Date / Time No Known Allergies Allergy Verified 05/04/23 11:43 Past Med/Surg History Problem List (Updated 05/29/25 @ 14:31 by Andreea Conway MD) Hypertension Acute loss of vision (Acute) Acute CVA (cerebrovascular accident) (Acute) Lab test positive for detection of COVID-19 virus Dysuria Encounter for pre-operative examination No known health problems (Acute) Alcohol intoxication (Acute) Alcohol intoxication (Acute) Alcohol overdose (Acute) Alcohol overdose (Acute) Hernia, incisional (Acute 04/05/14) Medical History (Updated 05/29/25 @ 14:31 by Andreea Conway MD) Morbid obesity with BMI of 45.0-49.9, adult Gout Sleep apnea no device, improved after bariatric sx Surgical History History of incisional hernia repair per pt came back--"volleyball sized hernia" History of esophagogastroduodenoscopy (EGD) History of wisdom tooth extraction History of María-en-Y gastric bypass Family History Father Family history of reaction to anesthesia "jeff freaked out after waking after surgery before" Social History Smoking Status: Never smoker Tobacco Type: Smokeless Tobacco (Dip or Chew) Second Hand Exposure: Yes (parents smoked); Do You Dip or Chew Tobacco: No; Hx Alcohol Use: Yes Alcohol type: beer, wine and hard liquor Hx Substance Use: No Preferred Language: Frisian Communication Ability: Effective Malted Milk Mixer Required: No Beliefs That Will Affect Care: None marital status: Single Current Living Situation: Alone current occupational status: employed current occupation: [employer] Feels Safe at Home: Yes caffeine: Yes (coffee and tea) Dental Care, Regularly: Yes Physical Activity Frequency: 1-2 Times per Week Seatbelt Use: never Sunscreen Use: Yes Assistive Devices: Glasses Review of Systems Review of Systems: CONST: Negative for fever, body aches and chills. HENT: Negative for neck pain/stiffness, headache, congestion, sore throat, swelling. EYES: Negative for discharge/pain, Right eye visual field loss. RESP: Negative for cough/hemoptysis and shortness of breath. CV: Negative chest pain, difficulty breathing, palpitations. ABD: Negative pain, nausea, vomiting. : Negative increase frequency, dysuria, blood in urine or stool. MUSC: Negative for muscle aches, edema. SKIN: Negative rash, lesions/sores. NEURO: Negative headache, dizziness, weakness. Physical Exam Physical Exam: GENERAL APPEARANCE NAD, activity normal for age, well developed/ well nourished, no cyanosis, pallor, or diaphoresis. EYES lids/conjunctiva normal. EARS/NOSE/THROAT Mucous membranes moist, nares normal, lips/teeth normal uvula midline without oral pharyngeal erythema, exudate or swelling TMs normal bilaterally. No lymphangitis/lymphedema. HEAD/NECK normocephalic atraumatic, no facial trauma, neck is supple. RESPIRATORY respiratory effort normal, speaks in full sentences, no tripod position, no accessory muscle use. Lungs clear to auscultation without rhonchi, wheezes, rales CARDIAC Regular rate and rhythm, no edema. ABDOMINAL Soft, ND/NT. No evidence of fluid wave. No pulsatile masses on exam, rebound tenderness, Granado sign or pain over Mcburney's point. MUSCLES/EXTREMITIES No abnormal range of motion, no swelling. SKIN Warm, pink and dry. No rashes, dermatoses, petechiae or lesions. NEUROLOGICAL Speech is clear and appropriate. Normal level of consciousness. Gait and coordination are normal. 5/5 strength in all extremities. PSYCH Normal mood and affect. Judgement/competence is appropriate Results & Data Results & Data Vital Signs (Past 12 Hours) Vital Signs Temp Pulse Pulse Resp BP BP Pulse Ox 05/29/25 15:16 113/65 05/29/25 15:15 88 25 H 98 05/29/25 15:10 129/77 05/29/25 15:09 88 24 97 05/29/25 15:06 87 16 96 05/29/25 15:05 116/89 05/29/25 15:03 86 21 97 05/29/25 15:03 132/76 05/29/25 15:00 91 H 22 98 05/29/25 14:57 91 H 31 H 98 05/29/25 14:55 176/110 H 05/29/25 14:54 92 H 29 H 97 05/29/25 14:51 95 H 26 H 97 05/29/25 14:50 171/112 H 05/29/25 14:48 90 20 97 05/29/25 14:45 151/92 H 05/29/25 14:45 151/92 H 05/29/25 14:45 86 21 98 05/29/25 14:42 84 19 98 05/29/25 14:40 146/94 H 05/29/25 14:39 85 18 98 05/29/25 14:36 84 17 97 05/29/25 14:35 146/96 H 05/29/25 14:33 92 H 19 99 05/29/25 14:30 156/86 H 05/29/25 14:30 82 20 98 05/29/25 14:30 156/86 H 05/29/25 14:27 85 19 96 05/29/25 14:25 146/95 H 05/29/25 14:24 88 21 97 05/29/25 14:21 94 H 30 H 96 05/29/25 14:20 162/97 H 05/29/25 14:18 92 H 28 H 98 05/29/25 14:16 136/76 05/29/25 14:15 92 H 30 H 97 05/29/25 14:12 94 H 30 H 98 05/29/25 14:10 152/105 H 05/29/25 14:09 93 H 26 H 97 05/29/25 14:06 88 23 97 05/29/25 14:00 146/88 H 05/29/25 14:00 90 23 96 05/29/25 13:57 88 19 97 05/29/25 13:55 153/96 H 05/29/25 13:55 153/96 H 05/29/25 13:54 84 20 96 05/29/25 13:51 86 21 96 05/29/25 13:50 149/87 H 05/29/25 13:48 86 19 96 05/29/25 13:45 151/96 H 05/29/25 13:45 86 25 H 96 05/29/25 13:43 154/88 H 05/29/25 13:43 85 20 154/88 H 96 05/29/25 13:42 94 H 25 H 96 05/29/25 13:40 172/110 H 05/29/25 13:39 94 H 24 98 05/29/25 13:38 181/113 H 05/29/25 13:38 181/113 H 05/29/25 13:36 92 H 24 05/29/25 13:30 98 H 21 95 05/29/25 13:30 172/109 H 05/29/25 13:28 111 H 05/29/25 13:27 190/105 H 05/29/25 13:27 102 H 25 H 96 05/29/25 13:27 103 H 190/105 H 05/29/25 13:11 177/110 H 05/29/25 13:11 177/110 H 05/29/25 12:58 36.6 C 98 H 18 195/132 H 98 O2 Del Method 05/29/25 15:16 05/29/25 15:15 Room Air 05/29/25 15:10 05/29/25 15:09 05/29/25 15:06 Room Air 05/29/25 15:05 05/29/25 15:03 Room Air 05/29/25 15:03 05/29/25 15:00 Room Air 05/29/25 14:57 Room Air 05/29/25 14:55 05/29/25 14:54 Room Air 05/29/25 14:51 Room Air 05/29/25 14:50 05/29/25 14:48 05/29/25 14:45 05/29/25 14:45 05/29/25 14:45 Room Air 05/29/25 14:42 Room Air 05/29/25 14:40 05/29/25 14:39 Room Air 05/29/25 14:36 Room Air 05/29/25 14:35 05/29/25 14:33 05/29/25 14:30 05/29/25 14:30 Room Air 05/29/25 14:30 05/29/25 14:27 Room Air 05/29/25 14:25 05/29/25 14:24 Room Air 05/29/25 14:21 Room Air 05/29/25 14:20 05/29/25 14:18 Room Air 05/29/25 14:16 05/29/25 14:15 Room Air 05/29/25 14:12 Room Air 05/29/25 14:10 05/29/25 14:09 Room Air 05/29/25 14:06 Room Air 05/29/25 14:00 05/29/25 14:00 Room Air 05/29/25 13:57 Room Air 05/29/25 13:55 05/29/25 13:55 05/29/25 13:54 Room Air 05/29/25 13:51 Room Air 05/29/25 13:50 05/29/25 13:48 Room Air 05/29/25 13:45 05/29/25 13:45 Room Air 05/29/25 13:43 05/29/25 13:43 Room Air 05/29/25 13:42 Room Air 05/29/25 13:40 05/29/25 13:39 Room Air 05/29/25 13:38 05/29/25 13:38 05/29/25 13:36 05/29/25 13:30 Room Air 05/29/25 13:30 05/29/25 13:28 05/29/25 13:27 05/29/25 13:27 Room Air 05/29/25 13:27 05/29/25 13:11 05/29/25 13:11 05/29/25 12:58 Room Air PG Care Time/CCT Total # of Minutes Spent Total Time Spent with Patient: Total time spent is greater than 50% in coordination of care (as documented) at patient's floor/unit and/or counseling patient: Coding Level of Care Code 03922 INT INP/OBS CARE 2/55MIN Diagnoses Acute loss of vision H53.139 Hypertension I10
[2025-05-29] MEDS: LORazepam Inj 1 MG in SYRINGE 0.5 ML IV STA (16:48)
[2025-05-29] MEDS: GADOBUTROL 65ML VIAL IV ONE (17:53)
[2025-05-29] MEDS ORDERED: LABETALOL HCL IV 5 MG/ML 20ML IV PRN (18:22)
--- NOTE | 2025-05-29 18:37 | XCELERA ---
[id number] \\[id number]
--- NOTE | 2025-05-29 18:39 | Neurology Consultation ---
Date of Consultation May 29, 2025 Assessment & Plan (1) Central retinal artery occlusion of right eye: (2) Ischemic optic neuropathy of right eye: Plan 60-year-old male with acute, painless, monocular vision loss for the right eye with preserved vision for the right upper quadrant only. I suspect either a central retinal artery occlusion or ischemic optic neuropathy. No signs or symptoms suggestive of arteritis. No hemodynamically significant stenosis of the carotid arteries on CT angiography although there was some atherosclerosis within the bilateral carotid bulbs. Cholesterol emboli not excluded. He appears to have significant hypertension, has not been following with his PCP. He does not appear to have diabetes mellitus. He does endorse using chewing tobacco regularly. He has not had a lipid panel completed since 2018, although at that time, his lipids were within normal range. He did receive TNKase in the emergency department and his vision loss has been stable. His recent brain MRI looks negative for acute stroke per my review although there may be some slight restricted diffusion within the right retina on DWI that could be consistent with retinal ischemic injury. This potential finding is inconclusive and would not likely be commented on by radiology. Going forward, would recommend aspirin 81 mg daily, starting 24 hours after administration of TNKase. Continue hypertension management per stroke protocol, nicardipine and labetalol are appropriate as ordered. I would also recommend checking a lipid panel and starting a statin as he does have some atherosclerotic plaque within the carotid bulbs, goal LDL going forward 70 or le ss. He will likely need to be placed on an oral antihypertensive prior to discharge as well. He will need additional counseling regarding cessation of chewing tobacco. He will also need outpatient ophthalmology assessment for formal visual field evaluation and for OCT testing to assess his optic nerves. Would also be worthwhile to get a transthoracic echocardiogram with a bubble study while he is here at the [facility]. Would also suggest 30-day mobile cardiac outpatient telemetry. We can see him in the neurology clinic in 2 to 3 weeks after discharge to assist. He will need to reestablish with his primary care physician as well. Please call with any questions. History of Present Illness Reason for Consultation: Right eye vision loss Requesting Physician: Isidro Attending Physician: Hunter Felix MD History of Present Illness The patient is a 60-year-old male who presented to the emergency department with acute painless monocular vision loss for the right eye. Symptoms began acutely at around 9:30 this morning. He saw his officer captain who recommended assessment in the emergency department. He does perceive some spared vision in the right upper quadrant for the right eye. Normal visual field for the left eye. He did receive TNKase during his assessment in the emergency department. He reports that his symptoms have been stable to perhaps slightly improved. Again, he denies any ocular or periorbital pain, no headache, no myalgia. He denies any other associated neurological symptom, no dysarthria, dysphagia, focal weakness or sensory loss. No problems with balance or coordination. He drove himself to the emergency department. He does not see his primary care physician regularly and does not take any prescription medications. He recalls having a dental extraction about 1 month ago. Denies any recent head or neck injuries. A CTA of the head and neck was unremarkable, no significant vascular lesion. There was some atherosclerotic calcification of the cavernous carotid arteries. A carotid ultrasound was normal. I did independently review his brain MRI, formal radiology interpretation is not available at this time. There is no evidence of acute or subacute infarct on DWI. (There may be a slight degree of restricted diffusion within the right retina on diffusion-weighted imaging, paged 11 and 12 out of 30, the optic nerves look grossly normal) there is no evidence of chronic microhemorrhage on axial T2*GRE. The brain parenchyma is grossly normal on T2/FLAIR weighted sequences with perhaps only very minimal chronic microvascular ischemic change within the cerebral hemispheres. There is no abnormal postcontrast enhancement. An electrocardiogram indicates a normal sinus rhythm, 86 bpm. Allergies Allergy/AdvReac Type Severity Reaction Status Date / Time No Known Allergies Allergy Verified 05/04/23 11:43 Patient History Medical History (Updated 05/29/25 @ 18:29 by Sonu Mcfarlane MD) Morbid obesity with BMI of 45.0-49.9, adult Gout Sleep apnea no device, improved after bariatric sx Surgical History History of incisional hernia repair per pt came back--"volleyball sized hernia" History of esophagogastroduodenoscopy (EGD) History of wisdom tooth extraction History of María-en-Y gastric bypass Family History Father Family history of reaction to anesthesia "jeff freaked out after waking after surgery before" Social History Smoking Status: Never smoker Tobacco Type: Smokeless Tobacco (Dip or Chew) Second Hand Exposure: No; Do You Dip or Chew Tobacco: Yes; Hx Alcohol Use: No Hx Substance Use: No Preferred Language: Filipino Communication Ability: Effective 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 Beliefs That Will Affect Care: None marital status: Single Current Living Situation: Alone current occupational status: employed current occupation: [employer] Feels Safe at Home: Yes caffeine: Yes (coffee and tea) Dental Care, Regularly: Yes Physical Activity Frequency: 1-2 Times per Week Seatbelt Use: never Sunscreen Use: Yes Assistive Devices: None Review of Systems Constitutional: no fever Eyes: as per Subjective / HPI and + blind spots; no eye pain Ear, Nose, Mouth, Throat: no hearing loss Respiratory: no dyspnea Cardiovascular: no chest pain and no palpitations Gastrointestinal: no nausea and no vomiting Genitourinary: no dysuria Musculoskeletal: + joint pain (Chronic bilateral shoulder pain); no myalgia Integumentary: no rash Neurologic: as per Subjective / HPI; no gait abnormality, no localized weakness, no loss of sensation, no lack of coordination, no abnormal movements, no headache(s), no abnormal speech and no memory loss Psychiatric: no depression and no anxiety Hematologic / Lymphatic: no easy bleeding and no easy bruising Exam (Neuro) Constitutional: well developed and well nourished; no acute distress Eyes: EOM intact bilaterally; + abnormal visual field confrontation, + no PERRL and no nystagmus Neurologic: Oriented to:: Person, Place and Time Memory: Short Term Intact and Remote Intact Attention: Span Intact and Concentration Intact Speech Fluency: negative Dysarthria or Dysfluency Speech Aphasia: negative Aphasia Fund of Knowledge: Current Events, Past History and Vocabulary Cranial Nerves: Normal V, VII, VIII, IX, X, XI and XII; Abnorm II or III, IV, Motor Strength: Normal Lower Extremities and Normal Upper Extremities Motor Tone: Normal Lower Extremities and Normal Upper Extremities Muscle Bulk/Involuntary Movements: No Involuntary Movements; negative Muscle Atrophy Sensation: Light Touch Intact, Pain/Temperature Intact and Proprioception Intact Coordination: negative Dysdiadochokinesia, Finger-Nose Abnormal or Heel-[place]ills Abnormal Deep Tendon Reflexes: Rt Triceps: 2+, Lt Triceps: 2+, Rt Biceps: 2+, Lt Biceps: 2+, Rt Brachioradialis: 2+, Lt Brachioradialis: 2+, Rt Patellar: 2+, Lt Patellar: 2+, Rt Ankle: 1+ and Lt Ankle: 1+ Details: The right pupil is modestly dilated compared to the left, there is a relative afferent pupillary defect, there is severe impairment of the visual field for the right eye only with some preserved vision for the right upper quadrant only. Normal visual field for the left eye. Results & Data Vital Signs (Past 12 Hours) Vital Signs Temp Pulse Pulse Resp BP BP Pulse Ox 05/29/25 17:45 37.2 C 98 H 16 145/101 H 98 05/29/25 16:45 37 C 94 H 16 172/92 H 98 05/29/25 16:15 37.2 C 96 H 12 175/112 H 100 05/29/25 15:45 05/29/25 15:45 37.2 C 92 H 16 167/106 H 98 05/29/25 15:45 37.2 C 77 16 167/106 H 98 05/29/25 15:30 05/29/25 15:16 113/65 05/29/25 15:15 88 25 H 98 05/29/25 15:10 129/77 05/29/25 15:09 88 24 97 05/29/25 15:06 87 16 96 05/29/25 15:05 116/89 05/29/25 15:03 86 21 97 05/29/25 15:03 132/76 05/29/25 15:00 91 H 22 98 05/29/25 14:57 91 H 31 H 98 05/29/25 14:55 176/110 H 05/29/25 14:54 92 H 29 H 97 05/29/25 14:51 95 H 26 H 97 05/29/25 14:50 171/112 H 05/29/25 14:48 90 20 97 05/29/25 14:45 151/92 H 05/29/25 14:45 151/92 H 05/29/25 14:45 86 21 98 05/29/25 14:42 84 19 98 05/29/25 14:40 146/94 H 05/29/25 14:39 85 18 98 05/29/25 14:36 84 17 97 05/29/25 14:35 146/96 H 05/29/25 14:33 92 H 19 99 05/29/25 14:30 156/86 H 05/29/25 14:30 82 20 98 05/29/25 14:30 156/86 H 05/29/25 14:27 85 19 96 05/29/25 14:25 146/95 H 05/29/25 14:24 88 21 97 05/29/25 14:21 94 H 30 H 96 05/29/25 14:20 162/97 H 05/29/25 14:18 92 H 28 H 98 05/29/25 14:16 136/76 05/29/25 14:15 92 H 30 H 97 05/29/25 14:12 94 H 30 H 98 05/29/25 14:10 152/105 H 05/29/25 14:09 93 H 26 H 97 05/29/25 14:06 88 23 97 05/29/25 14:00 146/88 H 05/29/25 14:00 90 23 96 05/29/25 13:57 88 19 97 05/29/25 13:55 153/96 H 05/29/25 13:55 153/96 H 05/29/25 13:54 84 20 96 05/29/25 13:51 86 21 96 05/29/25 13:50 149/87 H 05/29/25 13:48 86 19 96 05/29/25 13:45 151/96 H 05/29/25 13:45 86 25 H 96 05/29/25 13:43 154/88 H 05/29/25 13:43 85 20 154/88 H 96 05/29/25 13:42 94 H 25 H 96 05/29/25 13:40 172/110 H 05/29/25 13:39 94 H 24 98 05/29/25 13:38 181/113 H 05/29/25 13:38 181/113 H 05/29/25 13:36 92 H 24 05/29/25 13:30 98 H 21 95 05/29/25 13:30 172/109 H 05/29/25 13:28 111 H 05/29/25 13:27 190/105 H 05/29/25 13:27 102 H 25 H 96 05/29/25 13:27 103 H 190/105 H 05/29/25 13:11 177/110 H 05/29/25 13:11 177/110 H 05/29/25 12:58 36.6 C 98 H 18 195/132 H 98 O2 Del Method 05/29/25 17:45 Room Air 05/29/25 16:45 Room Air 05/29/25 16:15 Room Air 05/29/25 15:45 Room Air 05/29/25 15:45 Room Air 05/29/25 15:45 Room Air 05/29/25 15:30 Room Air 05/29/25 15:16 05/29/25 15:15 Room Air 05/29/25 15:10 05/29/25 15:09 05/29/25 15:06 Room Air 05/29/25 15:05 05/29/25 15:03 Room Air 05/29/25 15:03 05/29/25 15:00 Room Air 05/29/25 14:57 Room Air 05/29/25 14:55 05/29/25 14:54 Room Air 05/29/25 14:51 Room Air 05/29/25 14:50 05/29/25 14:48 05/29/25 14:45 05/29/25 14:45 05/29/25 14:45 Room Air 05/29/25 14:42 Room Air 05/29/25 14:40 05/29/25 14:39 Room Air 05/29/25 14:36 Room Air 05/29/25 14:35 05/29/25 14:33 05/29/25 14:30 05/29/25 14:30 Room Air 05/29/25 14:30 05/29/25 14:27 Room Air 05/29/25 14:25 05/29/25 14:24 Room Air 05/29/25 14:21 Room Air 05/29/25 14:20 05/29/25 14:18 Room Air 05/29/25 14:16 05/29/25 14:15 Room Air 05/29/25 14:12 Room Air 05/29/25 14:10 05/29/25 14:09 Room Air 05/29/25 14:06 Room Air 05/29/25 14:00 05/29/25 14:00 Room Air 05/29/25 13:57 Room Air 05/29/25 13:55 05/29/25 13:55 05/29/25 13:54 Room Air 05/29/25 13:51 Room Air 05/29/25 13:50 05/29/25 13:48 Room Air 05/29/25 13:45 05/29/25 13:45 Room Air 05/29/25 13:43 05/29/25 13:43 Room Air 05/29/25 13:42 Room Air 05/29/25 13:40 05/29/25 13:39 Room Air 05/29/25 13:38 05/29/25 13:38 05/29/25 13:36 05/29/25 13:30 Room Air 05/29/25 13:30 05/29/25 13:28 05/29/25 13:27 05/29/25 13:27 Room Air 05/29/25 13:27 05/29/25 13:11 05/29/25 13:11 05/29/25 12:58 Room Air Laboratory Results WBC 9.33, hemoglobin 16.1, hematocrit 48.7, MCV 86.7, platelet count 196, sodium 138, potassium 4.0, BUN 14, creatinine 0.84, glucose 98, calcium 9.6, magnesium 2.0 Coding Level of Care Code 33046 INT INP/OBS CARE 3/75MIN Diagnoses Central retinal artery occlusion of right eye H34.11 Ischemic optic neuropathy of right eye H47.011 Time Spent (min) 90 Comment Total time includes patient contact, chart review, counseling, note preparation
--- NOTE | 2025-05-29 18:54 | Electrocardiogram Report ---
Test Reason : Blood Pressure : */* mmHG Vent. Rate : 86 BPM Atrial Rate : 86 BPM P-R Int : 128 ms QRS Dur : 100 ms QT Int : 354 ms P-R-T Axes : 21 17 28 degrees QTcB Int : 423 ms Normal sinus rhythm When compared with ECG of 03-May-2023 16:50, No significant change was found Confirmed by Edward Kamara ([id number]) on 05/29/2025 6:53:53 PM Referred By: Confirmed By: Edward Kamara
--- NOTE | 2025-05-29 18:56 | Magnetic Resonance Report ---
Technique: Magnetic resonance angiography was performed of the [place] using a 3 D time of flight technique. Angiographic reconstructions were obtained Findings: The visualized internal carotid arteries appear unremarkable bilaterally. No definite stenosis or aneurysm is identified of the anterior, middle, or posterior cerebral artery circulations bilaterally. The cerebellar arteries are patent. The basilar artery appears unremarkable. No vascular malformation is seen. No other definite abnormality is noted. Impression: Unremarkable MRA of the brain Electronically signed by Chepe Villalpando 05-29-2025 6:56 PM
--- NOTE | 2025-05-29 18:56 | Magnetic Resonance Report ---
Clinical History: Vision loss Technique: Multiple T1 and T2-weighted magnetic resonance images were obtained of the brain both before and after the administration of intravenous gadolinium contrast Findings: There is no sign of acute or old infarction with normal-appearing diffusion weighted images. No definite focus of demyelination is seen. No mass lesion or other area of abnormal enhancement is identified. There is no intracranial hemorrhage or other fluid collection. No midline shift or other form of herniation is seen. There is no hydrocephalus. The pituitary gland appears normal. Normal flow-voids are seen within the arteries of the [id number]. The orbits and paranasal sinuses appear normal. The mastoid air cells appear clear Impression: Unremarkable MRI of the brain Electronically signed by Chepe Villalpando 05-29-2025 6:55 PM
[2025-05-29] MEDS: LORazepam 0.5 MG TAB PO PRN (21:52)
[2025-05-30] MEDS: LABETALOL HCL IV 5 MG/ML 20ML IV PRN (01:52)
[2025-05-30 05:57] LABS: Hematocrit (blood only) 43.6 % (42.0-52.0); Hemoglobin 14.5 g/dL (14.0-18.0); Immature Granulocytes # (auto) 0.01 K/uL (0.01-0.20); Immature Granulocytes % (auto) 0.2 %; Mean Corpuscular Hemoglobin 29.0 pg (25.0-34.0); Mean Corpuscular Volume 87.2 fL (80.0-100.0); Platelet Count 157 K/uL (130-400); RDW Standard Deviation 40.8 fL (36.4-46.3); Red Blood Count 5.00 M/uL (4.70-6.10); White Blood Count 6.11 K/ul (4.8-10.8)
[2025-05-30 06:13] LABS: Anion Gap 7.0 (3-11); Blood Urea Nitrogen 13.0 mg/dl (6-23); Calcium 8.9 mg/dl (8.6-10.3); Carbon Dioxide 30.0 mmol/L (21-32); Chloride 100.0 mmol/L (98-107); Cholesterol 181.0 mg/dl (0-200); Creatinine Clr Calc Pharmacy 104.1 ml/min; Glucose 99.0 mg/dl (70-99(Fasting)); HDL Cholesterol 33.0 mg/dl; Magnesium 1.8 mg/dl (1.7-2.4); Potassium 4.7 mmol/L (3.5-5.1); Sodium 137.0 mmol/L (136-145); Triglycerides 94.0 mg/dl (0-150)
[2025-05-30 06:28] LABS: Thyroid Stimulating Hormone 1.878 uIu/ml (0.300-4.500)
[2025-05-30 07:58] LABS: Hemoglobin A1C 5.2 % (4.5-5.6)
[2025-05-30] MEDS ORDERED: ESCITALOPRAM OXALATE 10 MG TAB PO SCH (09:00)
[2025-05-30] MEDS: ACETAMINOPHEN 325 MG TAB PO SCH (09:25)
[2025-05-30 10:06] VITALS: TEMP 98.2
[2025-05-30] MEDS ORDERED: PHARMACIST DISCHARGE MED REC CONSULT PRN (10:24)
--- NOTE | 2025-05-30 10:27 | Pharmacy Report ---
- Date of Service May 30, 2025 - Pharmacy CVA/TIA Medication Review Medications to Prevent Stroke handout has been added to the patients discharge packet. Antiplatelet(s) * Aspirin 81 mg PO daily Cholesterol * High intensity statin: atorvastatin 40 mg daily DVT Prophylaxis * SCD knee Therapeutic Anticoagulation * No history of Afib/Aflutter noted Type 2 Diabetes * Patient does not have T2DM
--- NOTE | 2025-05-30 10:32 | Critical Care Progress Note ---
Date of Service May 30, 2025 Assessment & Plan (1) Acute CVA (cerebrovascular accident): (2) Acute loss of vision: (3) Hypertension: Plan Patient is a 60-year-old male with a past medical history of obesity, anxiety, JENNIFER without home CPAP. The patient presented to the emergency department after acute onset of vision loss at 9:30 AM. He had been evaluated by an communications engineering technician who was concerned about a stroke in the right eye. CT imaging on arrival to the ER did not show any acute process. Neurology was consulted. The decision was made to administer TNK which was done at 1345. The patient was admitted to the ICU post TNK. Patient was monitored in the ICU overnight. Did well. No changes in neurologic status, he does endorse a slight improvement in his vision but nothing significant. No other focal neurologic deficits. MRA and MRI of the brain unremarkable. Mild carotid atherosclerosis without stenosis appreciated. Echo was performed, grossly normal with the exception of grade 1 diastolic dysfunction. No shunt appreciated. CT of the head is pending for 24 hours post TNK. Patient may be discharged home if this is normal. Reason Critically Ill: Acute CVA status post TNK Right eye vision loss Hypertension History of JENNIFER without home CPAP Neuro: All imaging including MRA and MRI are unrevealing. Almost complete vision loss out of the right eye. No other focal deficits appreciated. Not significantly improved after TNK. Patient received TNK at 1345. Blood pressure is acceptable. Possible evaluation, has a diet. Patient will need a repeat CT head at 24 hours. This is pending. Obtain a stat CT head if the patient develops headache or worsening neurologic symptoms. Lipid panel does not show evidence of significant hyperlipidemia. Echo does not show evidence of a shunt. Homocystine is pending, TSH is within normal limits. A1c is normal. Cardiac: Echo showing grade 1 diastolic dysfunction. No shunt appreciated. Blood pressure is acceptable. Did not require nicardipine infusion. Respiratory: History of JENNIFER with out home CPAP use. On room air. No issues at this time. GI: Diet ordered. RENAL/LYTES: Renal function normal on admission labs. Electrolytes acceptable. ENDO: Lipid profile grossly within normal limits. A1c normal. HEME: No evidence of anemia or significant thrombocytopenia. ID: No symptoms of infection or indication for antibiotics at this time. Feeding: Diet is ordered. Activity: As tolerated Thromboprophylaxis: SCD Ulcer prophylaxis: None Glycemic control: Glucose acceptable at this time. Plan: Patient has been monitored in the ICU post TNK. He will get a CT at approximately 145 today. If this is negative he can be discharged home or to the floor depending on neurology and hospitalist recommendations. I have personally spent 45 minutes of critical care time in the direct management of this patient. This is a life/limb threatening event. This includes time spent evaluating patient, direct bedside care, chart review, placing orders, interpretation of diagnostic studies, discussion with consultants, patient, and family members, as well as other required patient management activities. This time is exclusive of all separately billable procedures, and teaching time and separate from and in addition to any other critical care service time. Admission and Anticipated Discharge Date Admission Date: May 29, 2025 Subjective Past 24-hour events: Patient admitted to the ICU overnight. Received tPA for acute CVA. Did well, blood pressure was okay. No significant improvement in his vision however. Imaging unrevealing. Rounding: Doing well this morning. Having breakfast. Limited vision out of the right eye. He thinks it slightly better however. No other focal neurologic deficits. Intake: 1300 mL Output: 1600 mL Net: -300 mL Mechanical ventilation: None Feeding: Regular diet IV infusions: None Laboratory: CBC: WBC 6.1, hemoglobin 14.5, platelet 157 Chemistry: Sodium 137, potassium 4.7, chloride 100, bicarb 30, BUN 13, creatinine 1.0, glucose 103 Other: A1c 5.2%, normal lipid profile, homocystine is pending, TSH within normal limits, UDS negative ABG: None Review of Systems Review of Systems: Negative except as in HPI. Physical Exam Physical Exam: Physical examination: General: Obese, comfortable, resting in bed, not in distress at this time. HEENT: Normocephalic, atraumatic. Pupils are dilated. Vision loss out of the right eye. Skin: Warm and dry. No rashes appreciated. No jaundice appreciated. Cardiovascular: Heart is a regular rate and rhythm, no murmurs appreciated on my exam. No significant lower extremity edema. Lungs: Clear bilaterally, no wheezing appreciated. No crackles. Nontachypneic. Resting comfortably on room air. Abdomen: Protuberant, nontender. No masses appreciated. Musculoskeletal: Normal muscle mass and tone. No gross joint deformity abnormalities. No effusions appreciated. Neurologic: Awake and alert, oriented. Speech is fluent. Moving all extremities. Normal sensation and strength. Right eye vision loss. Psychiatric: Appropriate cooperative during my exam. Results & Data Results & Data Vital Signs (Past 12 Hours) Vital Signs Temp Pulse Pulse Resp BP BP BP 05/30/25 09:53 36.8 C 90 14 155/100 H 05/30/25 08:53 37 C 93 H 18 147/89 H 05/30/25 08:00 05/30/25 07:53 36.8 C 95 H 18 167/97 H 05/30/25 07:45 36.8 C 95 H 18 167/97 H 05/30/25 07:00 95 H 05/30/25 06:45 37 C 22 167/97 H 05/30/25 05:45 37.2 C 92 H 20 119/87 05/30/25 04:45 92 H 19 140/87 05/30/25 03:45 36.9 C 90 20 130/79 05/30/25 02:45 37.2 C 96 H 22 120/92 05/30/25 02:00 95 H 125/78 05/30/25 02:00 95 H 125/78 05/30/25 01:52 101 H 166/108 H 05/30/25 01:45 37 C 98 H 20 142/106 H 05/30/25 00:45 37 C 101 H 23 146/95 H 05/30/25 00:00 108 H 05/29/25 23:45 37.1 C 102 H 22 132/93 05/29/25 23:00 163/98 H 05/29/25 22:45 36.8 C 99 H 21 151/102 H Pulse Ox O2 Del Method O2 Flow Rate 05/30/25 09:53 95 Room Air 05/30/25 08:53 96 Nasal Cannula 2 05/30/25 08:00 Nasal Cannula 05/30/25 07:53 95 Nasal Cannula 2 05/30/25 07:45 95 Nasal Cannula 2 05/30/25 07:00 05/30/25 06:45 96 Room Air 05/30/25 05:45 96 Nasal Cannula 2 05/30/25 04:45 96 Nasal Cannula 2 05/30/25 03:45 96 Nasal Cannula 05/30/25 02:45 97 Nasal Cannula 2 05/30/25 02:00 05/30/25 02:00 05/30/25 01:52 05/30/25 01:45 97 Nasal Cannula 2 05/30/25 00:45 95 Nasal Cannula 2 05/30/25 00:00 05/29/25 23:45 94 Nasal Cannula 2 05/29/25 23:00 05/29/25 22:45 94 Room Air Coding [place] [address] SUB INP/OBS CARE 3/50MIN Patient Type Established History Detailed Exam Detailed Medical Decision Making Moderate Complexity Diagnoses Acute CVA (cerebrovascular accident) I63.9 Acute loss of vision H53.139 Hypertension I10
[2025-05-30 11:00] VITALS: RESP 16
--- NOTE | 2025-05-30 13:30 | CT Scan Report ---
EXAM: CT Head Without Intravenous Contrast INDICATION: Post thrombolytics. TECHNIQUE: Axial computed tomography images of the head/brain without intravenous contrast. Sagittal and/or coronal reformats are provided. Sagittal and coronal reformatted images were created and reviewed. This CT exam was performed using one or more of the following dose reduction techniques: automated exposure control, adjustment of the mA and/or kV according to patient size, and/or use of iterative reconstruction technique. COMPARISON: No relevant prior studies available. FINDINGS: Limitations: None. Brain and extra-axial spaces: No abnormality noted. No hemorrhage. No significant white matter disease. No edema. No ventriculomegaly. Bones/joints: No acute changes. Soft tissues: No acute abnormality noted. Vasculature: No acute abnormality noted. Sinuses: No layering fluid in the visualized portions of the paranasal sinuses. Mastoid air cells: No mastoid effusion. Orbits: No acute abnormality noted. IMPRESSION: No abnormality noted. ACT 112: N/A Electronically signed by Gabriela Huitron 05-30-2025 13:29 PM
[2025-05-30 13:56] VITALS: PULSE 88; O2SAT 95
[2025-05-30 13:59] VITALS: BP 167/97
--- NOTE | 2025-05-30 14:22 | Discharge Summary ---
Discharge Summary Date of Service May 30, 2025 Principal Dx & Hospital Course #1 = Principal Diagnosis (1) Acute loss of vision: -right eye total visual field loss -CTA/CTA negative -s/p TNK -ICU monitoring -repeat CT ordered for am -echo with bubble showing no shunt -carotid doppler -MRI/MRA brain negative -homocystine level -TSH -critical care consult appreciated -repeat CT negative -d/c home with asa, Lipitor (2) Hypertension: -permissive HTN -nicardipine -d/c home on norvasc for BP control Admission HPI Per Admitting Provider Pt is a 60 y/o male with pmh of HTN who presents with right total visual field loss. 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 Pt has no other neurological deficits. Pt went to a warp knitter helper who evaluated the patient and set him to the ER for treatment of ocular stroke. In the ER his CT/CTA head was negative. The case was discussed with tele-neurology who recommended patient received TNK, and it was administered at 13:45. Pt did report some improvement to his right eye vision after. He is being admitted to ICU for further monitoring post TKA and will have his CVA work up completed with echo, carotid duplex and MRI/MRA brain. Discharge Exam GENERAL APPEARANCE NAD, activity normal for age, well developed/ well nourished, no cyanosis, pallor, or diaphoresis. EYES lids/conjunctiva normal. EARS/NOSE/THROAT Mucous membranes moist, nares normal, lips/teeth normal uvula midline without oral pharyngeal erythema, exudate or swelling TMs normal bilaterally. No lymphangitis/lymphedema. HEAD/NECK normocephalic atraumatic, no facial trauma, neck is supple. RESPIRATORY respiratory effort normal, speaks in full sentences, no tripod position, no accessory muscle use. Lungs clear to auscultation without rhonchi, wheezes, rales CARDIAC Regular rate and rhythm, no edema. ABDOMINAL Soft, ND/NT. No evidence of fluid wave. No pulsatile masses on exam, rebound tenderness, Granado sign or pain over Mcburney's point. MUSCLES/EXTREMITIES No abnormal range of motion, no swelling. SKIN Warm, pink and dry. No rashes, dermatoses, petechiae or lesions. NEUROLOGICAL Speech is clear and appropriate. Normal level of consciousness. Gait and coordination are normal. 5/5 strength in all extremities. PSYCH Normal mood and affect. Judgement/competence is appropriate Discharge Plan Discharge Items Patient Disposition: Home - Self-Care Reason For Visit: VISUAL CHANGES Discharge Diagnosis: Retinal Arterty Occlusion Condition on Discharge: Fair Activity: Resume your previous activity Non-emergency contact: Primary Care Provider Call non-emergency contact if: you have any medication questions Follow-up/Referrals: Meghann Croft MD [Primary Care Provider] - 06/06/25 11:30 am (06/06/25 at 11:30 with Meghann Croft) Diet: Regular Addtl Attending Provider Instructions: Follow up with PMD in 2 weeks Pending Studies at Discharge: No Stand-Alone Forms: [employer] Smoking Cessation, Medications to Prevent Stroke Medications and DC Order Prescriptions: New aspirin 81 mg capsule 81 mg PO DAILY Qty: 30 0RF atorvastatin [Lipitor] 40 mg tablet 40 mg PO DAILY Qty: 30 0RF amlodipine [Norvasc] 5 mg tablet 5 mg PO DAILY Qty: 30 0RF Discharge Orders: Discharge Order (Routine); Ordered 05/30/25 Ordered By: Hunter Felix Admission Data Admit Date/Time: 05/29/25 14:19 Attending Provider: Hunter Felix Admit Provider: Hunter Felix Primary Care Provider: Meghann Croft Other Providers: Andreea Conway; Hunter Felix; Sonu Mcfarlane. Other Interventions: Discharge Summary Assessment (RN) Last Done: 05/30/25 13:57 Hospital Stay Data Consultations 05/29/25 14:07 Consult Packaging Materials Inspector Stat ED Decision to Admit Stat 05/29/25 16:18 Consult Neurology Routine Diagnostic Imagining Performed 05/29/25 13:06 CT angio head w con Stat CT angio neck with con Stat CT head/brain wo con Stat 05/29/25 14:19 Carotid duplex [US carotid doppler BI] Routine MRI Angio Brain [MR angio head wo con] Stat MRI Brain [MR brain wo/w con] Stat 05/30/25 13:30 CT head/brain wo con Stat Pending Results Patient Have Any Pending Studies at Discharge: No Discharge Instructions Given to Patient (Per Discharging Provider) Follow up with PMD in 2 weeks Total Time Total Time Spent Total Time Spent (In Minutes): 50 Coding Level of Care Code 21452 INP/OBS DISCH >30 MIN Diagnoses Acute loss of vision H53.139 Hypertension I10
== END 2025-05-30 14:33 | disposition home or self-care (01) | DRG 123 ==
LOC: ED 12:56 → 1E 14:19